=== PATIENT | male | born 1965 | race Caucasian/White ===

== ENCOUNTER 2020-05-10 07:42 | Day surgery (SDC) | payer BC ==
[~2020-05-10] VITALS: Ht 190.5 cm; Wt 96.1 kg
[2020-05-10] VITALS (13 sets, daily range): BP systolic 121–140; BP diastolic 71–88
[2020-05-10] MEDS ORDERED: diphenhydrAMINE 25mg capsule PO PRN (08:00)
[2020-05-10] MEDS ORDERED: normal saline 1,000 ML IV SCH (08:00)
[2020-05-10] MEDS ORDERED: nitroGLYCERIN 0.4mg SUBLingual tab SL PRN ×2 (08:00→10:30)
[2020-05-10] MEDS ORDERED: LORazepam 0.5 MG tablet PO PRN (08:00)
[2020-05-10] MEDS ORDERED: LISI-600 PO (08:04)
[2020-05-10] MEDS ORDERED: immune support (08:15)
[2020-05-10] MEDS ORDERED: CART1TAB4 (08:15)
[2020-05-10] MEDS ORDERED: MULT-1085 PO (08:15)
[2020-05-10] MEDS ORDERED: [UNRECOGNIZED DRUG - OTHER] (08:15)
[2020-05-10] MEDS ORDERED: MV-M1TAB19 PO (08:15)
[2020-05-10] MEDS ORDERED: epi pen (08:15)
[2020-05-10] MEDS ORDERED: ASPI-611 PO (08:15)
[2020-05-10] MEDS ORDERED: VITC500T PO (08:15)
[2020-05-10] MEDS ORDERED: sudafed (08:15)
[2020-05-10] MEDS ORDERED: tumeric (08:15)
[2020-05-10] MEDS ORDERED: [UNRECOGNIZED DRUG - OTHER] (08:15)
[2020-05-10] MEDS ORDERED: CALC-1215 PO (08:15)
[2020-05-10] MEDS ORDERED: iohexol 350MG/ML 100ml bottle IV ONE (08:49)
[2020-05-10] MEDS ORDERED: fentaNYL/PF 50MCG/1 ML 2ML syringe ONE (08:49)
[2020-05-10] MEDS ORDERED: iohexol 350 MG/ML 50ML vial IV ONE (08:49)
[2020-05-10] MEDS ORDERED: LIDOcaine 1% (10mg/ml)w/preservative injection 20ml MDV ONE (08:49)
[2020-05-10] MEDS ORDERED: midazolam 2 mg/2 ml injection ONE ×2 (08:49→09:35)
[2020-05-10] MEDS ORDERED: heparin 1,000 UNITS/NS 500ml 500 ML ONE (08:49)
--- NOTE | 2020-05-10 10:14 | NUR ---
Patient is back in his room and has been educated on post procedure instructions/orders. Patient is resting comfortably at this time.
--- NOTE | 2020-05-10 10:15 | NUR ---
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 All questions have been answered at this time. She has been informed that the patient will need to lay flat and recover with us for the next 6 hours.
[2020-05-10] MEDS ORDERED: HYDROcodone/acetaminophen 10/325mg tab PO PRN (10:30)
[2020-05-10] MEDS ORDERED: OXAZEpam 15mg capsule PO PRN (10:30)
[2020-05-10] MEDS ORDERED: HYDROcodone/acetaminophen 5mg/325mg tablet PO PRN (10:30)
[2020-05-10] MEDS ORDERED: proCHLORperazine 10 MG/2 ml inj IV PRN (10:30)
[2020-05-10] MEDS ORDERED: ondansetron/PF 4mg/2ml inj IV PRN (10:30)
--- NOTE | 2020-05-10 12:18 | NUR ---
Patient has had 600mL urine output which was yellow, clear, and odorless. Pt voiding without any issues.
--- NOTE | 2020-05-10 12:20 | NUR ---
Patient in room . I have received report from Sapna CAMACHO, and had the opportunity to ask questions and assume patient care.
== END 2020-05-10 16:00 | disposition home or self-care (01) ==
LOC: SSTAY O 07:42
PROVIDERS: ATTEND Internal Medicine Cardiovascular Disease
DX: R94.39 Abnormal result of other cardiovascular function study (principal); I25.10 Atherosclerotic heart disease of native coronary artery without angina pectoris; I10 Essential (primary) hypertension; E78.5 Hyperlipidemia, unspecified; Z88.0 Allergy status to penicillin; Z91.030 Bee allergy status; Z88.8 Allergy status to other drugs, medicaments and biological substances; Z87.891 Personal history of nicotine dependence; Z79.899 Other long term (current) drug therapy
CPT/HCPCS: 93005; 93458; 99152; 99153; C1760; C1769; J1644; J2001; J2250; J3010; J7030; Q0163; Q9967; A4620; A6258; A6449